=== PATIENT | female | born 1945 | race Caucasian/White ===

== ENCOUNTER 2021-05-18 01:49 | Day surgery (SDC) | payer OTHER, SELFPAY ==
[2021-05-13 12:12] VITALS: BMI 33.5
[2021-05-18 06:23] VITALS: BP 156/104; PULSE 96; RESP 18; TEMP 36.4; O2SAT 95; BMI 34.4
[2021-05-18] MEDS: LACTATED RINGERS 1,000 ML 150 ML IV CONT (06:33)
[2021-05-18 06:34] VITALS: BP 152/93
--- NOTE | 2021-05-18 06:49 | WPDANESEPPF ---
Anes - Initial Pre Proc Eval Procedure: Operation Date: 05/18/21 07:30 Proposed Procedures p Esophagogastroduodenoscopy - Stephane Barrera MD Date/Time: 05/18/21 06:49 Surgeon: Stephane Barrera MD Pre Op Diagnosis: epigastric pain Patient Data Age: 75 Gender: F Height: 1.7 m Weight: 99.8 kg Last Vital Signs Temp 36.4 C L 05/18/21 06:23 Pulse 96 05/18/21 06:23 Resp 18 05/18/21 06:23 BP 152/93 H 05/18/21 06:34 Pulse Ox 95 05/18/21 06:23 Allergies Allergy/AdvReac Type Severity Reaction Status Date / Time No Known Allergies Allergy Unverified 05/18/21 06:19 Home Medications Medication Instructions Recorded Confirmed Type pantoprazole 40 mg tablet,delayed 40 mg PO BID tablet 05/07/21 05/13/21 History release aliskiren 150 mg tablet 150 mg PO DAILY 05/08/21 05/13/21 History aspirin 81 mg tablet,delayed 81 mg PO DAILY 05/08/21 05/13/21 History release bupropion HCl 300 mg 24 hr tablet, 300 mg PO QAM 05/08/21 05/13/21 History extended release carbidopa 25 mg-levodopa 100 mg 2 tablet PO TID tablet 05/08/21 05/13/21 History tablet cyanocobalamin (vitamin B-12) 1,000 mcg PO DAILY 05/08/21 05/13/21 History 1,000 mcg tablet,extended release donepezil 10 mg tablet 10 mg PO BID 05/08/21 05/13/21 History loperamide 2 mg tablet 6 mg PO DAILY 05/08/21 05/13/21 History melatonin 5 mg capsule 10 mg PO HS cap 05/08/21 05/13/21 History mirabegron 25 mg tablet,extended 25 mg PO DAILY 05/08/21 05/13/21 History release 24 hr nifedipine 90 mg tablet,extended 90 mg PO DAILY 05/08/21 05/13/21 History release promethazine 25 mg tablet 25 mg PO TID 05/08/21 05/13/21 History simvastatin 40 mg tablet 40 mg PO DAILY 05/08/21 05/13/21 History trazodone 100 mg tablet 50 mg PO QHS 05/08/21 05/13/21 History triazolam 0.25 mg tablet 0.25 mg PO QID 05/08/21 05/13/21 History skyla (Zingiber officinalis) 250 mg PO DAILY 05/13/21 05/13/21 History [skyla extract] Patient hx anesthesia problems: none Family hx anesthesia problems: none Results Review: All pre-operative results and documents have been reviewed as part of the pre-operative evaluation. PMFSH Past Medical History Medical History (Updated 05/18/21 @ 06:50 by Live Pickett MD) HTN (hypertension) Hyperlipidemia Surgical History Surgical History (Updated 05/18/21 @ 06:50 by Live Pickett MD) H/O colonoscopy H/O: hysterectomy Social History Social History Smoking status: Never smoker Alcohol intake: never Substance use: never Substance use type: does not use Living arrangements: with family Spiritual care concerns: No Anes - Eval Final PreProcedure Day of Procedure 05/18/21 06:49 Patient weight: obese Heart: regular rate and rhythm Lungs: clear to auscultation Airway: Mallampati scale class II Neurological: alert and oriented Last oral intake: >/= 8 hours ASA classification: III Emergent: no Anesthetic plan: proceed Anesthesia type and monitoring: general GIVS and standard monitoring Results Review: All pre-operative results and documents have been reviewed as part of the pre-operative evaluation. Informed Consent: The patient's anesthetic plan and its attendant risks and benefits were discussed with the patient/family/POA. Questions were solicited and answers provided to the satisfaction of the patient/family/POA.
--- NOTE | 2021-05-18 07:16 | WPDHPUPDATE1 ---
History and Physical Update Update Date/Time: 05/18/21 07:16 History and Physical has been reviewed, including an updated exam of the patient. There are NO changes in the patient's condition. Risks, benefits, and alternatives have been discussed and questions answered. Patient agrees to proceed with procedure.
[2021-05-18 07:34] VITALS: BP 124/75; PULSE 76; RESP 20; O2SAT 92
[2021-05-18 07:44] VITALS: BP 135/70; PULSE 71; RESP 26; O2SAT 94
[2021-05-18 07:54] VITALS: BP 137/89; PULSE 71; RESP 21; O2SAT 95
== END 2021-05-18 08:12 | disposition home or self-care (01) ==
PROVIDERS: PCP Family Medicine Adolescent Medicine; Visit Provider Internal Medicine Gastroenterology
PROC: 0DJ08ZZ Inspection of Upper Intestinal Tract, Via Natural or Artificial Opening Endoscopic (ICD-10-PCS; CPT 43235; principal; 2021-05-18 07:30)
DX: R10.13 Epigastric pain (principal); I10 Essential (primary) hypertension; E78.5 Hyperlipidemia, unspecified; E66.9 Obesity, unspecified; Z68.34 Body mass index [BMI] 34.0-34.9, adult; Z79.82 Long term (current) use of aspirin
CPT/HCPCS: 43239; 87081; J2704; J7120